=== PATIENT | female | born 1980 | race Caucasian/White ===

== ENCOUNTER 2020-01-16 21:26 | Emergency (ER) | payer MEDICAID, OTHER ==
[2020-01-16] MEDS ORDERED: Acetaminophen 325 MG Tab PO ONE (21:55)
[2020-01-16] MEDS ORDERED: Bacitracin Oint 1 GM U/D Packet TOP ONE (22:58)
[2020-01-16] MEDS ORDERED: Lidocaine 1% 30 ML SDV INJECT ONE (22:58)
[2020-01-16] MEDS ORDERED: Diphtheria,Pertussis(Acell),Tetanus Vaccine 0.5 ML Syringe IM ONE (23:50)
--- NOTE | 2020-01-16 23:56 | EDM.PDOC ---
ED HPI GENERAL MEDICAL PROBLEM - General Chief Complaint: Laceration Stated Complaint: RIGHT POINTER FINGER ON KNUCKLE BLEEDING Time Seen by Provider: 01/16/20 22:00 Source of Information: Reports: Patient History Limitations: Reports: No Limitations - History of Present Illness INITIAL COMMENTS - FREE TEXT/NARRATIVE: cut right index finger swinging hand hit against metal door frame and cut. Right Finger-Index Pain Score (Numeric/FACES): 7 - Related Data Allergies Allergy/AdvReac Type Severity Reaction Status Date / Time amoxicillin Allergy Hives Verified 01/16/20 21:53 azithromycin Allergy Hives Verified 01/16/20 21:53 cefdinir [From Omnicef] Allergy Hives Verified 01/16/20 21:53 cephalexin Allergy Hives Verified 01/16/20 21:53 erythromycin base Allergy Hives Verified 01/16/20 21:53 [From E-Mycin] levofloxacin [From Levaquin] Allergy Hives Verified 01/16/20 21:53 rofecoxib Allergy Hives Verified 01/16/20 21:53 zolpidem [From Ambien] Allergy Hives Verified 01/16/20 21:53 codeine sulfate Allergy UNKNOWN Uncoded 02/28/19 07:59 sertraline hcl Allergy UNKNOWN Uncoded 02/28/19 07:59 Home Meds: Home Meds Albuterol Sulfate [Albuterol Sulfate Hfa] 2 sprays INH ASDIRECTED 01/16/20 [History] Linaclotide [Linzess] 145 mg PO DAILY 01/16/20 [History] Past Medical History HEENT History: Reports: Otitis Media Respiratory History: Reports: Asthma, Pneumonia, Recurrent Gastrointestinal History: Reports: Chronic Constipation Genitourinary History: Reports: Pyelonephritis, UTI, Recurrent [employer] History: Reports: - Past Surgical History HEENT Surgical History: Reports: Tonsillectomy GI Surgical History: Reports: Cholecystectomy Social & Family History - Tobacco Use Smoking Status *Q: Never Smoker Second Hand Smoke Exposure: No - Caffeine Use Caffeine Use: Reports: Coffee - Recreational Drug Use Recreational Drug Use: No ED ROS GENERAL - Review of Systems Review Of Systems: Comprehensive ROS is negative, except as noted in HPI. ED EXAM, SKIN/RASH Exam: See Below Exam Limited By: No Limitations General Appearance: Alert, Anxious, Mild Distress Eye Exam: Bilateral Eye: EOMI Nose: Normal Inspection Throat/Mouth: Normal Inspection Head: Atraumatic, Normocephalic Neck: Normal Inspection Respiratory/Chest: No Respiratory Distress, Normal Breath Sounds Cardiovascular: Regular Rate, Rhythm Extremities: No: Normal Range of Motion Neurological: Alert, Oriented, CN II-XII Intact, Normal Cognition, No Motor/Sensory Deficits Psychiatric: Anxious Skin: Wound/Incision Location, Skin: Upper Extremity, Right (2cm laceration distal to MIP) ED SKIN PROCEDURES - Laceration/Wound Repair Right Middle Digit - 2nd (Index) Appearance: Superficial Anesthetic Type: Local Local Anesthesia - Lidocaine (Xylocaine): 1% Plain Local Anesthetic Volume: 1cc Skin Prep: Chlorhexidine (Hibiciens), Saline Closed with: Sutures Lac/Wound length In cm: 2 Suture Size: 4-0 # of Sutures: 2 Drain Placement: No Sterile Dressing Applied: Nurse Tetanus Status Addressed: Yes Course - Vital Signs Last Recorded V/S: Last Vital Signs Temp 96.2 F L 01/16/20 21:34 Pulse 64 01/16/20 21:34 Resp 16 01/16/20 21:34 BP 108/65 01/16/20 21:34 Pulse Ox 99 01/16/20 21:34 - Orders/Labs/Meds Meds: Medications Discontinued Medications Generic Name Dose Route Start Last Admin Trade Name Nolan PRN Reason Stop Dose Admin Acetaminophen 650 mg 01/16/20 21:55 01/16/20 22:08 Tylenol PO 01/16/20 21:56 650 mg NOW ONE Administration Bacitracin 1 dose 01/16/20 22:58 01/16/20 23:20 Bacitracin Oint 1 Gm TOP 01/16/20 22:59 1 dose ONETIME ONE Administration Diphtheria/Tetanus/Acell Pertussis 0.5 ml 01/16/20 23:50 01/16/20 23:56 Boostrix IM 01/16/20 23:51 0.5 ml .ONCE ONE Administration Lidocaine HCl 30 ml 01/16/20 22:58 01/16/20 23:18 Xylocaine-Mpf 1% INJECT 01/16/20 22:59 30 ml ONETIME ONE Administration Departure - Departure Time of Disposition: 23:54 Disposition: Home, Self-Care 01 Condition: Good Clinical Impression: Broken skin - Discharge Information *PRESCRIPTION DRUG MONITORING PROGRAM REVIEWED*: No *COPY OF PRESCRIPTION DRUG MONITORING REPORT IN PATIENT BLANQUITA: No Instructions: Laceration Care, Adult, [id number] Referrals: PCP,None [Primary Care Provider] - Forms: ED Department Discharge Additional Instructions: sutures out 10-14 days keep wound clean and dry follow up if redness swelling or drainage bandaide dressing change at least twice daily wash with soap and water. tylenol 650mg every 4 hours as needed fo discomfort Sepsis Event Note (ED) - Evaluation Sepsis Screening Result: No Definite Risk - Focused Exam Vital Signs: Vital Signs Temp Pulse Resp BP Pulse Ox 01/16/20 21:34 96.2 F L 64 16 108/65 99
== END 2020-01-17 00:01 | disposition home or self-care (01) ==
LOC: DL.ED 21:26
DX: S61.210A Laceration without foreign body of right index finger without damage to nail, initial encounter (principal); J45.909 Unspecified asthma, uncomplicated; Z23 Encounter for immunization; Z88.1 Allergy status to other antibiotic agents; Z88.8 Allergy status to other drugs, medicaments and biological substances; Z88.5 Allergy status to narcotic agent; W22.8XXA Striking against or struck by other objects, initial encounter
CPT/HCPCS: 12001; 90471; 90715; 99282; A9270; J2001

== ENCOUNTER 2021-07-15 22:50 | Emergency (ER) | payer OTHER ==
[2021-07-15] MEDS ORDERED: Sodium Chloride 0.9% 10 ML Syringe FLUSH PRN (22:56)
[2021-07-15] MEDS ORDERED: Sodium Chloride 0.9% 1,000 ML IV ONE (22:57)
[2021-07-15] MEDS ORDERED: HYDROmorphone 0.5 MG/0.5 ML Syringe IVPUSH ONE (23:21)
[2021-07-15] MEDS ORDERED: Ondansetron 4 MG/2 ML SDV IVPUSH ONE (23:21)
[2021-07-15 23:31] LABS: ANION GAP 14.5 mEq/L (7-13); CHLORIDE,CL 104 mmol/L (98-107); SODIUM,NA 143 mmol/L (136-145)
[2021-07-15] MEDS ORDERED: HYDROmorphone 0.5 MG/0.5 ML Syringe ONE (23:42)
[2021-07-16] MEDS ORDERED: methylPREDNISolone Sodium Succinate 125 MG/2 ML SDV IVPUSH ONE (00:57)
[2021-07-16] MEDS ORDERED: Acetaminophen 500 MG Tab PO ONE (00:57)
== END 2021-07-16 02:10 | disposition home or self-care (01) ==
LOC: DL.ED 22:50
DX: S86.911A Strain of unspecified muscle(s) and tendon(s) at lower leg level, right leg, initial encounter (principal); Z88.0 Allergy status to penicillin; Z88.1 Allergy status to other antibiotic agents; Z88.5 Allergy status to narcotic agent; Z86.16 Personal history of COVID-19
CPT/HCPCS: 36415; 73562; 80053; 80307; 83605; 83690; 83735; 84484; 85025; 85379; 86140; 93005; 96374; 96375; 99283; 99284; A9270; J1170; J2405; J2930; J3360; J3490; J7030

== ENCOUNTER 2023-11-01 18:37 | Emergency (ER) | payer OTHER, MEDICAID ==
[2023-11-01 19:13] LABS: BASOPHILS PERCENT AUTO 0.2 % (0.0-1.0); HEMATOCRIT 41.2 % (37.0-47.0); HEMOGLOBIN 13.8 g/dL (12.0-16.0); LYMPHOCYTES PERCENT AUTO 36.9 % (20.5-50.1); MEAN CORPUSCULAR HEMOGLOBIN 32.5 pg (27.0-34.0); MEAN CORPUSCULAR HGB CONC 33.5 g/dL (33.0-35.0); MEAN CORPUSCULAR VOLUME 96.9 fL (80-100); MONOCYTES PERCENT AUTO 7.3 % (2-8); NEUTROPHILS PERCENT AUTO 52.6 % (42.2-75.2); PLATELET COUNT,PLT 385 10^3/uL (150-450); RED BLOOD CELL COUNT 4.25 10^6/uL (4.2-5.4); WHITE BLOOD CELL COUNT,WBC 9.1 10^3/uL (5.0-10.0)
[2023-11-01] MEDS: Sodium Chloride 0.9% 10 ML Syringe FLUSH PRN (19:15)
[2023-11-01] MEDS: fentaNYL 100 MCG/2 ML SDV IVPUSH ONE (19:19)
[2023-11-01 19:21] LABS: APPEARANCE,URINE CLEAR (CLEAR); BILIRUBIN,URINE NEGATIVE (NEGATIVE); COLOR,URINE YELLOW (YELLOW); GLUCOSE,URINE NEGATIVE (NEGATIVE); KETONES,URINE TRACE (NEGATIVE); LEUKOCYTE ESTERASE,URINE TRACE (NEGATIVE); NITRITE,URINE NEGATIVE (NEGATIVE); OCCULT BLOOD,URINE NEGATIVE (NEGATIVE); PH,URINE 5.5 (5.0-9.0); PROTEIN,URINE NEGATIVE (NEGATIVE); UROBILINOGEN,URINE 0.2 mg/dL (0.2-1.0)
[2023-11-01 19:30] LABS: A/G RATIO 1.4; ANION GAP 13.9 mEq/L (7-13); BILIRUBIN TOTAL 0.4 mg/dL (0.2-1.0); BUN/CREATININE RATIO 14.6 (No establ ref range); CALCIUM 9.1 mg/dL (8.5-10.1); CREATININE 0.89 mg/dL (0.55-1.02); EST CRCL DRUG DOSING (CG) 83.07 mL/min; POTASSIUM,K 3.9 mmol/L (3.5-5.1); PROTEIN TOTAL,TP 6.9 g/dL (6.4-8.2)
[2023-11-01 19:36] LABS: BACTERIA,URINE MODERATE /HPF (0-FEW/HPF); EPITHELIAL CELLS,URINE MODERATE /HPF (NOT SEEN); MUCUS,URINE FEW /LPF (NOT SEEN); RBC,URINE 0-5 /HPF (0-5)
[2023-11-01] MEDS: Iopamidol 612 MG/ML 100 ML Bottle IVPUSH ONE (19:44)
== END 2023-11-01 20:28 | disposition home or self-care (01) ==
LOC: DL.ED 18:37
DX: S29.011A Strain of muscle and tendon of front wall of thorax, initial encounter (principal); J45.909 Unspecified asthma, uncomplicated; Z90.49 Acquired absence of other specified parts of digestive tract; Z88.8 Allergy status to other drugs, medicaments and biological substances; Z88.1 Allergy status to other antibiotic agents; X58.XXXA Exposure to other specified factors, initial encounter
CPT/HCPCS: 36415; 74177; 80053; 81001; 82150; 83690; 85025; 87086; 96374; 99284-25; J3010; J3490; Q9967

== ENCOUNTER 2024-07-16 16:29 | Emergency (ER) | payer OTHER, MEDICAID ==
[2024-07-16] MEDS ORDERED: Sodium Chloride 0.9% 10 ML Syringe FLUSH PRN (16:57)
[2024-07-16 17:12] LABS: BASOPHILS PERCENT AUTO 0.2 % (0.0-1.0); EOSINOPHILS PERCENT AUTO 2.9 % (1.0-3.0); HEMATOCRIT 38.3 % (37.0-47.0); HEMOGLOBIN 12.9 g/dL (12.0-16.0); LYMPHOCYTES PERCENT AUTO 32.8 % (20.5-50.1); MEAN CORPUSCULAR HEMOGLOBIN 33.2 pg (27.0-34.0); MEAN CORPUSCULAR HGB CONC 33.7 g/dL (33.0-35.0); MEAN CORPUSCULAR VOLUME 98.5 fL (80-100); MONOCYTES PERCENT AUTO 6.1 % (2-8); PLATELET COUNT,PLT 362 10^3/uL (150-450); RED BLOOD CELL COUNT 3.89 10^6/uL (4.2-5.4); WHITE BLOOD CELL COUNT,WBC 9.2 10^3/uL (5.0-10.0)
[2024-07-16 17:32] LABS: INR 0.9 (0.9-1.2); PROTHROMBIN TIME 9.9 SEC (9.0-12.0); PTT,PARTIAL THROMBOPLSTIN TIME 25.8 SEC (22.0-34.0)
[2024-07-16 17:36] LABS: LACTIC ACID 0.8 mmol/L (0.4-2.0)
[2024-07-16 17:41] LABS: A/G RATIO 1.2; ALANINE AMINOTRANSFERASE,ALT 17 U/L (14-59); ALBUMIN 3.7 g/dL (3.4-5.0); ALKALINE PHOSPHATASE 64 U/L (46-116); ANION GAP 13.9 mEq/L (7-13); ASPARTATE AMNIOTRANSFERASE,AST 11 U/L (15-37); BILIRUBIN TOTAL 0.3 mg/dL (0.2-1.0); BLOOD UREA NITROGEN,BUN 6 mg/dL (7-18); BUN/CREATININE RATIO 8.3 (No establ ref range); CALCIUM 8.5 mg/dL (8.5-10.1); CARBON DIOXIDE,CO2 26 mmol/L (21-32); CHLORIDE,CL 105 mmol/L (98-107); CREATININE 0.72 mg/dL (0.55-1.02); EST CRCL DRUG DOSING (CG) 101.63 mL/min; GLUCOSE RANDOM 94 mg/dL (70-99); POTASSIUM,K 3.9 mmol/L (3.5-5.1); PROTEIN TOTAL,TP 6.7 g/dL (6.4-8.2); SODIUM,NA 141 mmol/L (136-145); TSH ULTRASENSITIVE 1.42 uIU/mL (0.36-3.74)
[2024-07-16 17:42] LABS: C-REACTIVE PROTEIN < 0.50 ng/dL (<=0.50); ESTIMATED GFR 106 mL/min (>=60)
== END 2024-07-16 18:00 | disposition home or self-care (01) ==
LOC: DL.ED 16:29
DX: R07.89 Other chest pain (principal); F41.9 Anxiety disorder, unspecified; J45.909 Unspecified asthma, uncomplicated; Z88.0 Allergy status to penicillin; Z88.1 Allergy status to other antibiotic agents; Z88.8 Allergy status to other drugs, medicaments and biological substances; Z79.51 Long term (current) use of inhaled steroids; Z79.899 Other long term (current) drug therapy
CPT/HCPCS: 36415; 71045; 80053; 83605; 83735; 84443; 84484; 85025; 85610; 85730; 86140; 93005; 93010; 99284; 99285